=== PATIENT | female | born 1985 | race Two or more races ===

== ENCOUNTER 2020-11-13 05:14 | Day surgery (SDC) | payer BC ==
--- NOTE | 2020-11-12 22:45 | History and Physical ---
History & Physical (DB) History & Physical History & Physical Chief Complaint: large right ovarian mass Reason for Hospitalization: admitted for LSC right oopherectomy, left ovarian cystectomy, hysteroscopy dilation and curettage History obtained from: Chart and Patient HPI: is a 35 year old female who presents with 6 cm right complex ovarian mass - most likely c/w dermoid and a smaller 2 cm left ovarian mass. Patient has a history of 2 prior cystectomies for dermoids. Patient's mom had an agressive uterine tumor a couple of years ago and her grandmother (maternal) from ovarian ca. Mother's invitae genetic marker analysis was negative. Past Medical History:prior x2/ ex lap/ cystectomy and lsc cystectomy Social History:lives with , 2kids no ETOH or smoking Diagnosis: Past Surgical History: Social History: Occupational History: Social History Main Topics: Smoking status: Smokeless tobacco: Alcohol use: Drug use: Sexual activity: Partners: control/ protection: Family History: Allergies: Medications: OCPS Review of Symptoms: General ROS: no weight loss or fever Psychological ROS: no depression or mood changes, no memory loss Ophthalmic ROS: no visual changes or eye irritation ENT ROS: no nasal congestion, hearing loss, dizziness Allergy and Immunology ROS: no allergic symptoms or urticaria Hematological and Lymphatic ROS: no swollen glands, unusual bleeding or bruising Endocrine ROS: no polyuria, polydipsia, weight changes, temperature intolerance Respiratory ROS: no cough, shortness of breath, or wheezing Cardiovascular ROS: no chest pain or dyspnea on exertion Gastrointestinal ROS: no abdominal pain, change in bowel habits, or black or bloody stools Musculoskeletal ROS: no myalgias or arthralgias Neurological ROS: no TIA or stroke symptoms Dermatological ROS: no new or changing skin lesions, rashes or pruritis Physical Exam Vitals: Intake/Output Summary (Last 24 hours) General appearance: alert, cooperative, no distress, appears stated age Head: Normocephalic, without obvious abnormality, atraumatic Eyes: conjunctivae/corneas clear. PERRL, EOM's intact. Throat: Lips, mucosa, and tongue normal. Teeth and gums normal Neck: supple, symmetrical, trachea midline, no adenopathy, thyroid: not enlarged, symmetric, no tenderness/mass/nodules, no carotid bruit and no JVD Lungs: clear to auscultation bilaterally Heart: regular rate and rhythm, S1, S2 normal, no murmur, click, rub or gallop Abdomen: soft, non-tender. Bowel sounds normal. No masses, no organomegaly BRAKE OPERATOR: mobile 6cm right ovarian mass/ enlarged left ovary also freely mobile, normal sized uterus Extremities: extremities normal, atraumatic, no cyanosis or edema Pulses: 2+ and symmetric Skin: Skin color, texture, turgor normal. No rashes or lesions Neurologic: Grossly normal Laboratories: Imaging and ancillary data: helene jerry on 11/11/2020 c/w complex hyperechoic right ovarian mass approximately 6cm in diameter c/w dermoid also a 2 cm right ovarian mass with fluid levels Assessment/Problem List: right complex adnexal mass and smaller left ovarian mass Plan: LSC with RSO and left cystectomy. hysteroscopy dilation and curettage DVT Prophylaxis: scd Code status: full Hospital Classification declaration: Based on this initial evaluation, and depending on the patient's clinical course, I anticipate that this patient will be an outpatient procedure. Disposition: Once the patient is stable to leave the hospital, I anticipate the patient will likely be discharged to the following environment: home with father Time of note may not reflect time of encounter. Unique Nunez MD Nov 12, 2020 22:45
[~2020-11-13] VITALS: Ht 170.2 cm; Wt 103.9 kg
[2020-11-13] VITALS (9 sets, daily range): BP systolic 116–148; BP diastolic 67–82
[~2020-11-13 05:14] MED LIST: NATAZIA 28 TAB1 EACH PO; PRENATA CHEWAB1 EACH PO; vitamin d PO
[2020-11-13] MEDS ORDERED: ceFAZolin sod 1 GM in NS 55 ML IVPB ONE (05:15)
[2020-11-13] MEDS ORDERED: BIOTIN-VITAMIN1 EACH PO (05:45)
[2020-11-13] MEDS ORDERED: Ropivacaine 5mg/ml Vial 30ml INJ ONE (07:27)
[2020-11-13] MEDS ORDERED: Acetaminophen (Non formulary) 100 ML IV ONE (07:30)
[2020-11-13] MEDS ORDERED: propofoL 1,000mg/100ml IV ONE (07:30)
[2020-11-13] MEDS ORDERED: HYDROcodone/Acetamin 7.5/325 tab ORAL PRN (07:30)
[2020-11-13] MEDS ORDERED: Labetalol 5mg/ml 20ml vial IV PRN (07:30)
[2020-11-13] MEDS ORDERED: oxyCODONE HCL/Acetaminophen 5/325mg ORAL PRN (07:30)
[2020-11-13] MEDS ORDERED: Meperidine 25mg/1ml Inj (FOR RIGORS ONLY) IV PRN (07:30)
[2020-11-13] MEDS ORDERED: LR 1000ml 1,000 ML IVLG SCH (07:30)
[2020-11-13] MEDS ORDERED: HYDROcodone/Acetamin 5/325 tab ORAL PRN ×2 (07:30→07:45)
[2020-11-13] MEDS ORDERED: LR 1000ml ONE (07:30)
[2020-11-13] MEDS ORDERED: Midazolam 2mg/2ml Inj IVP PRN (07:30)
[2020-11-13] MEDS ORDERED: NS Irrig 1000ml ONE (07:30)
[2020-11-13] MEDS ORDERED: fentaNYL 100 mcg/2 mL IV PRN (07:30)
[2020-11-13] MEDS ORDERED: LORazepam Inj 2mg/ml 1ml IV PRN (07:30)
[2020-11-13] MEDS ORDERED: Atropine Sulfate 0.4mg/ml inj IVP PRN (07:30)
[2020-11-13] MEDS ORDERED: ProvayBlue 5mg/ml 10ml amp INJ ONE (07:30)
[2020-11-13] MEDS ORDERED: Sterile Water Irrig 1000ml IRRIG ONE (07:30)
[2020-11-13] MEDS ORDERED: Metoclopramide 10mg/2ml Inj IVP PRN ×2 (07:30→07:45)
[2020-11-13] MEDS ORDERED: Ketorolac 30mg Inj IV PRN ×2 (07:30)
[2020-11-13] MEDS ORDERED: Hydromorphone 0.5mg/0.5ml inj IVP PRN (07:30)
[2020-11-13] MEDS ORDERED: DiphenhydrAMINE 50mg/ml Inj IVP PRN ×2 (07:30→07:45)
--- NOTE | 2020-11-13 07:34 | Anethesia Preoperative Eval ---
Anesthesia Pre-op PMH/ROS General Date of Evaluation: Nov 13, 2020 Time of Evaluation: 07:21 Anesthesiologist: Roxann ASA Score: ASA 2 Mallampati Score Class I : Soft palate, uvula, fauces, pillars visible Class II: Soft palate, uvula, fauces visible Class III: Soft palate, base of uvula visible Class IV: Only hard plate visible Mallampati Classification: Class I Surgeon: Enrique Diagnosis: Abd Pain Surgical Procedure: Laparoscopic R Oophorectomy, D&C, Hysterectomy Anesthesia History: none Family History: no anesthesia problems Allergies: Coded Allergies: No Known Allergies (Unverified , 11/11/20) Medications: see eMAR Patient NPO?: Yes Past Medical History Other: obesity - BMI 38 Anesthesia Pre-op Phys. Exam Physician Exam Last Vital Signs Date Time Temp Pulse Resp B/P (MAP) Pulse Ox O2 Delivery O2 Flow Rate FiO2 11/13/20 05:40 Room Air 11/13/20 05:40 97.1 66 18 116/79 100 Constitutional: NAD Neurologic: CN 2-12 intact Cardiovascular: RRR Respiratory: CTA Gastrointestinal: S/NT/ND Airway Exam Mallampati Score: Class II MO: full ROM: limited Teeth: missing, intact Anesthesia Pre-op A/P Labs Urine Test Test 11/13/20 05:25 Urine HCG, Qualitative Negative (NEGATIVE) Risk Assessment & Plan Assessment: ASA 2 Plan: GA, SED, GlideScope Status Change Before Surgery: No Pre-Antibiotics Dru Grams Ancef IV Given Within 1 Hr of Incision: Yes Time Given: 07:43 Rafal Hackett MD Nov 13, 2020 07:34
--- NOTE | 2020-11-13 07:35 | Immediate Post-Op Evaluation ---
Immediate Post-Op Evalulation Immediate Post-Op Evalulation Procedure: Laparoscopic R Oophorectomy, D&C, Hysterectomy Date of Evaluation: Nov 13, 2020 Time of Evaluation: 10:17 IV Fluids: 1000 LR Blood Products: 0 Estimated Blood Loss: 100 Urinary Output: 700 Blood Pressure Systolic: 143 Blood Pressure Diastolic: 75 Pulse Rate: 67 Respiratory Rate: 16 O2 Sat by Pulse Oximetry: 100 Temperature (Fahrenheit): 97.3 Pain Score (1-10): 2 Nausea: No Vomiting: No Complications 0 Patient Status: awake, reacts, patent, extubated, none Hydration Status: adequate Dru Grams Ancef IV Given Within 1 Hr of Incision: Yes Time Given: 07:43 Rafal Hackett MD Nov 13, 2020 07:35
[2020-11-13] MEDS ORDERED: Lidocaine 1% MPF 10mg/ml 5ml ONE ×2 (07:37→08:40)
[2020-11-13] MEDS ORDERED: fentaNYL 100 mcg/2 mL IV ONE ×2 (07:38→09:30)
--- NOTE | 2020-11-13 07:38 | Pre-Procedure Note/Attestation ---
Pre-Procedure Note/Attestation Complete Prior to Procedure Planned Procedure: not applicable Procedure Narrative: laparoscopic right oopherectomy, left cystectomy, hysteroscopy dilation and curettage Indications for Procedure Pre-Operative Diagnosis: right complex mass and smaller left cyst Attestation I attest that I discussed the nature of the procedure; its benefits; risks and complications; and alternatives (and the risks and benefits of such alternatives), prior to the procedure, with the patient (or the patient's legal benefits representative). I attest that, if there was a reasonable possibility of needing a blood transfusion, the patient (or the patient's legal benefits representative) was given the [place] [facility] [employer] [facility] standardized written summary, pursuant to the [employer] Blood Safety Act ([place] Health and Safety Code # 1645, as amended). I attest that I re-evaluated the patient just prior to the surgery and that there has been no change in the patient's H&P, except as documented below: Unique Nunez MD Nov 13, 2020 07:38
[2020-11-13] MEDS ORDERED: D5 1/2NS 1,000 ML IV SCH (07:45)
[2020-11-13] MEDS ORDERED: Tylenol #3 tab (300mg/30mg) ORAL PRN (07:45)
[2020-11-13] MEDS ORDERED: HYDROmorphone 1mg/ml Carpuject SUBQ PRN (07:45)
[2020-11-13] MEDS ORDERED: Glycopyrrolate 0.2mg/ml 1ml Vial ONE ×2 (08:39→09:30)
[2020-11-13] MEDS ORDERED: Lidocaine 1% Plain 30 ml INJ ONE (08:40)
[2020-11-13] MEDS ORDERED: Neostigmine 1mg/ml 10ml Inj ONE (09:30)
--- NOTE | 2020-11-13 09:51 | Brief Operative Note ---
Immediate Post Operative Note Operative Note Pre-op Diagnosis: right complex mass and smaller left cyst Procedure: laparoscopic left ovarian salpingoopherectomy and right cystectomy hysteroscopy dilation and curettage Post-op Diagnosis: same as pre-op Surgeon: piotr Mental Health Coordinator: addis Anesthesiologist: jagdish Anesthesia: general Specimen: yes - right ovary and tube and left dermoid Complications: none Condition: stable Fluids: crystalloid Estimated Blood Loss: volume - 60cc Implant(s) used?: No Unique Nunez MD Nov 13, 2020 09:51
--- NOTE | 2020-11-13 10:03 | 48 Hour Post Anesthesia Eval ---
Post Anesthesia Evaluation Procedure: Laparoscopic R Oophorectomy, D&C, Hysterectomy Date of Evaluation: Nov 13, 2020 Time of Evaluation: 12:23 Blood Pressure Systolic: 132 0: 74 Pulse Rate: 62 Respiratory Rate: 18 Temperature (Fahrenheit): 98 O2 Sat by Pulse Oximetry: 100 Airway: patent Nausea: No Vomiting: No Pain Intensity: 2 Hydration Status: adequate Cardiopulmonary Status: Stable Mental Status/LOC: patient returned to baseline Follow-up Care/Observations: 0 Post-Anesthesia Complications: 0 Follow-up care needed: ready to discharge Rafal Hackett MD Nov 13, 2020 10:03
--- NOTE | 2020-11-14 09:00 | Operative Note - Dictated ---
DATE OF OPERATION: 11/13/2020 PREOPERATIVE DIAGNOSES: Large right ovarian neoplasm and a smaller left-sided cyst, right lower quadrant pain. PROCEDURES: Laparoscopic right salpingo-oophorectomy and left cystectomy, hysteroscopy D and C. SURGEON: Unique Nunez M.D. CHICKEN RAISER: Nehal Saleh M.D. ANESTHESIOLOGIST: Rafal Hackett M.D. ANESTHESIA: General endotracheal. ESTIMATED BLOOD LOSS: Minimal. COMPLICATIONS: None. SPECIMENS: Right ovary and tube and left ovarian cyst consistent with dermoid and pelvic washings. PROCEDURE IN DETAIL: After ensuring informed consent, the patient was taken to the operating room, where general anesthesia was 01:15 distended with normal saline 01:22 to be within normal limits. Both 01:33 were identified. Hysteroscope was withdrawn. 01:38 D and C was performed 01:39 a small incision was made inside the umbilicus. Attempt was made to 01:52 with a guide needle but because of the patient's body habitus, it proved to be difficult. 02:11 direct visualization was used alongside 02:22 to gain peritoneal entry. Peritoneal cavity was distended with CO2 gas. A 5 mm suprapubic incision was made and a 10 mm trocar was inserted under direct visualization. Next, the left lateral 5 mm trocar was likewise inserted under direct visualization. Pelvis was explored. There was approximately a 6- to 7-cm right ovarian mass without excrescence 03:06 and a smaller 2 cm mass on the left. The ureters appeared within normal limits as well as the tubes. Pelvis was irrigated 03:17 and sent for washings. Next, using cautery, the right infundibulopelvic was paralysed and transected. The dissection was continued alongside the infundibulopelvic until it was completely transected. Please note that prior to beginning the ureters were visualized. Next, the utero-ovarian was grasped, cauterized, and transected until the complete adnexa was freed and was placed in the posterior cul-de-sac. Next, attention was turned to the left ovary, where approximately a 2 cm cyst was visualized. Ovary was opened over the pelvic cyst. Cyst was grasped and both bluntly and sharply dissected off of the underlying ovarian stroma. The left ovarian cyst was likewise placed in the cul-de- sac. Next, a 10 mm Endobag was placed into the pelvis and both masses were placed into the bag, brought out through the skin incision. Then, the mass was decompressed and it revealed a lot of adipose tissue material that was suctioned off until the bag was able to be brought out through the 10 mm incision. Next, pelvis was copiously irrigated. Excellent hemostasis was assured. All trocars were removed under direct visualization. The fascia of 10 mm trocar site was closed with 0 Vicryl and the skin was closed with 4-0 Monocryl and Steri-Strips over all 3 incisions. At the end of the procedure, all instrument and lap counts were correct x2. The patient was taken to the recovery area, extubated and in stable condition. Unique Nunez M.D. DR: BOOGIE JOB#: [id number] CC:
== END 2020-11-13 11:35 | disposition other institution (70) ==
LOC: SUR 05:14
DX: D49.59 Neoplasm of unspecified behavior of other genitourinary organ (principal); N83.202 Unspecified ovarian cyst, left side; E66.9 Obesity, unspecified
CPT/HCPCS: 58558; 58661; 58662; 81025; 94003; J0131; J0690; J1100; J1885; J2001; J2250; J2405; J2704; J2710; J2795; J3010; J7120; U0004; 94150; J2180